=== PATIENT | female | born 1960 | race Caucasian/White ===

== ENCOUNTER 2016-07-27 18:46 | Emergency (ER) | payer MEDICAID ==
[~2016-07-27] VITALS: Ht 172.7 cm; Wt 60.0 kg
[~2016-07-27 18:46] MED LIST: CLON1TAB PO; LEVO-86 PO; METO50TA PO; REST30CA PO
[2016-07-27 18:53] VITALS: BP 120/80; PULSE 87; RESP 17; TEMP 98.2; O2SAT 98
[2016-10-02] MEDS ORDERED: AUGM875T PO (14:37)
[2016-10-02] MEDS ORDERED: AMLO10TA2 PO (14:39)
[2016-11-13] MEDS ORDERED: LEVO-86 PO (14:52)
[2016-11-21] MEDS ORDERED: LEVO-86 PO (13:52)
== END 2016-07-27 22:56 | disposition left against medical advice (07) ==
LOC: NED 22:56
DX: R10.9 Unspecified abdominal pain (principal); Z53.21 Procedure and treatment not carried out due to patient leaving prior to being seen by health care provider
CPT/HCPCS: 99281

== ENCOUNTER 2016-08-01 02:30 | Emergency (ER) | payer MEDICAID ==
[~2016-08-01] VITALS: Ht 154.9 cm; Wt 51.0 kg
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
[2016-08-01 02:59] VITALS: BP 134/92; PULSE 103; RESP 18; TEMP 97.6
[2016-08-01 03:16] VITALS: BP 134/92; PULSE 103; RESP 18; TEMP 97.6; O2SAT 97
[2016-08-01 03:37] LABS: CHLORIDE 110 MEQ/L (98-107); POTASSIUM 3.7 MEQ/L (3.5-5.1); SODIUM (NA) 148 MEQ/L (136-145)
[2016-08-01 03:41] LABS: ANION GAP 9 MEQ/L (5-15); BICARBONATE 28.7 MEQ/L (21.0-32.0); BLOOD UREA NITROGEN 8 MG/DL (7-18); MAGNESIUM 2.1 MG/DL (1.5-2.5)
[2016-08-01 03:43] LABS: ALT (GPT) 64 U/L (10-53); AST (GOT) 87 U/L (15-37)
[2016-08-01 03:44] LABS: GLOMERULAR FILTRATION RATE 74 ML/MIN (>89)
[2016-08-01 03:45] LABS: BASOPHIL # 0.1 TH/MM3 (0-0.2); BASOPHIL % 1.7 % (0.0-2.0); EOSINOPHIL # 0.2 TH/MM3 (0-0.4); EOSINOPHIL % 2.6 % (0.0-4.0); HEMATOCRIT 38.3 % (35.0-46.0); HEMO FLAGS DIFF FINAL; LYMPH % 38.3 % (9.0-44.0); LYMPHOCYTE # 2.6 TH/MM3 (1.0-4.8); MEAN CORPUSCULAR HGB CONC 33.4 % (32.0-36.0); MONO % 11.5 % (0.0-8.0); NEUT % 45.9 % (16.0-70.0); PLATELET COUNT 466 TH/MM3 (150-450); RED BLOOD COUNT 3.99 MIL/MM3 (4.00-5.30); RED CELL DISTRIBUTION WIDTH 13.1 % (11.6-17.2); TOTAL BILIRUBIN ADULT 0.1 MG/DL (0.2-1.0); WHITE BLOOD COUNT 6.7 TH/MM3 (4.0-11.0)
[2016-08-01 03:46] LABS: ALKALINE PHOSPHATASE 65 U/L (45-117); CREATINE KINASE 112 U/L (26-192)
[2016-08-01 03:49] LABS: BETA HCG QUANT LESS THAN 1 MIU/ML (0-5)
--- NOTE | 2016-08-01 03:52 | RADHPO ---
EXAM DATE/TIME: 08/01/2016 02:55 [facility] COMPARISON: CHEST PA & LAT, May 25, 2016, 16:59. INDICATIONS : Chest pain. MEDICAL HISTORY : Hypertension. SURGICAL HISTORY : None. ENCOUNTER: Initial ACUITY: 1 day PAIN SCORE: 5/10 LOCATION: Bilateral chest FINDINGS: PA and lateral views of the chest demonstrate the lungs to be symmetrically aerated without evidence of mass, infiltrate or effusion. The cardiomediastinal contours are unremarkable. Osseous structure s are intact. CONCLUSION: 1. No acute cardiopulmonary disease. Michael Rosa MD on August 01, 2016 at 3:50 Board Certified Radiologist. This report was verified electronically.
[2016-08-01 04:07] LABS: CKMB 1.8 NG/ML (0.5-3.6)
[2016-08-01] MEDS ORDERED: LEVONORGESTREL (EMERGENCY OC) 1.5 MG TAB ONE (05:07)
[2016-08-01] MEDS ORDERED: ONDANSETRON ODT 4 MG TAB ONE (05:08)
[2016-08-01] MEDS ORDERED: AZITHROMYCIN 250 MG TAB ONE (05:08)
[2016-08-01] MEDS ORDERED: cefTRIAXone 250 MG VIAL ONE (05:08)
[2016-08-01] MEDS ORDERED: LIDOCAINE HCL 1% PF 2 ML VIAL ONE (05:09)
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
[2016-08-01 07:19] VITALS: BP 132/67
--- NOTE | 2016-08-01 22:50 | EKG ---
Date Performed: 08/01/2016 Time Performed: 03:47:48 PTAGE: 56 years EKG: Sinus rhythm Poor R wave progression - probable normal variant Borderline ECG PREVIOUS TRACING : 11/10/2015 00.41 DOCTOR: Shyanne June Interpretating Date/Time 08/01/2016 22:47:02
[2016-10-02] MEDS ORDERED: AUGM875T PO (14:37)
[2016-10-02] MEDS ORDERED: AMLO10TA2 PO (14:39)
[2016-11-13] MEDS ORDERED: LEVO-86 PO (14:52)
[2016-11-21] MEDS ORDERED: LEVO-86 PO (13:52)
== END 2016-08-01 07:59 | disposition home or self-care (01) ==
LOC: PHED 02:30
DX: F10.129 Alcohol abuse with intoxication, unspecified (principal); I10 Essential (primary) hypertension; I48.91 Unspecified atrial fibrillation; I50.9 Heart failure, unspecified; F17.200 Nicotine dependence, unspecified, uncomplicated; F31.9 Bipolar disorder, unspecified; T76.21XA Adult sexual abuse, suspected, initial encounter; Y90.8 Blood alcohol level of 240 mg/100 ml or more
CPT/HCPCS: 70450; 71020; 80053; 80320; 82550; 82552; 83690; 83735; 84484; 84702; 85025; 93005; 99285; J0696

== ENCOUNTER 2016-09-28 16:07 | Emergency (ER) | payer MEDICAID ==
[2016-09-28 16:09] VITALS: BP 150/90; PULSE 86; RESP 20; TEMP 98; O2SAT 95
[2016-09-28] MEDS ORDERED: SODIUM CHLOR 0.9% 1000 ML INJ 1,000 ML IV SCH (16:21)
[2016-09-28] MEDS ORDERED: LIDOCAINE VISCOUS 2% SOLN 15 ML UDC PO ONE (16:30)
[2016-09-28] MEDS ORDERED: ALUMINUM/MAGNESIUM/SIMETH 30 ML CUP PO ONE (16:30)
[2016-09-28] MEDS ORDERED: RESP: ALBUTEROL 2.5 MG/IPRATROPIUM 0.5 MG NEB (SCH) INH ONE (16:30)
[2016-09-28] MEDS ORDERED: SODIUM CHLORIDE 0.9% FLUSH 10 ML FLUSH IVF PRN (16:30)
[2016-09-28] MEDS ORDERED: methylPREDNISolone SOD SUCC 125 MG/2 ML VIAL IVP ONE (16:30)
[2016-09-28] MEDS ORDERED: RESP: ALBUTEROL 2.5 MG/IPRATROPIUM 0.5 MG NEB (SCH) NEB ONE ×2 (16:45)
--- NOTE | 2016-09-28 16:46 | PD ---
HPI Chief Complaint: ENT Complaint Time Seen by Provider: 16:30 Travel History International Travel<30 days: No Contact w/Intl Traveler<30days: No Traveled to known affect area: No History of Present Illness HPI The patient was seen and examined in the presence of the nurse. This patient is brought in by paramedics. She is very challenging to evaluate. She is an alcoholic who admits to drinking today. She is argumentative and uncooperative. She is swearing and being belligerent. Symptoms moderately severe. No alleviating factors. Duration is 3 days. She complains of cough and congestion and sore throat and runny nose. She is a smoker and frequent binge drinker. Denies drug use. PFSH Past Medical History Arthritis: Yes Asthma: No Atrial Fibrillation: Yes Autoimmune Disease: Yes Blood Disorders: No Bipolar Disorder: Yes Anxiety: Yes Depression: Yes Heart Rhythm Problems: Yes (VALVULAR HEART DISEASE, A FIB PER PATIENT) Cancer: Yes (LYMPHOMA, LEUKEMIA) Cardiovascular Problems: Yes High Cholesterol: No Chemotherapy: No Chest Pain: Yes Congestive Heart Failure: Yes COPD: No Cerebrovascular Accident: Yes Diabetes: Yes Patient Takes Glucophage: No Diminished Hearing: No Endocrine: Yes (SAAD) Gastrointestinal Disorders: Yes GERD: No Glaucoma: No Genitourinary: Yes (PAIN WITH URINATION X3 YEARS STATES HAS "CLIPS FROM BACK SURGERY IN BLADDER) Headaches: Yes Hepatitis: No Hiatal Hernia: No Hypertension: Yes Immune Disorder: Yes (SAAD, RAYNAUD'S SYNDROME) Implanted Vascular Access Dvce: Yes Kidney Stones: No Musculoskeletal: Yes Neurologic: Yes Reproductive: Yes ("TILTED UTERUS") Respiratory: Yes Immunizations Current: No Myocardial Infarction: No Radiation Therapy: No Renal Failure: No Seizures: No Sleep Apnea: No Thyroid Disease: Yes Ulcer: Yes ("BLEEDING ULCERS" STOMACH) Menopausal: Yes : 5 Para: 3 Miscarriage: 0 : 2 Ovarian Cysts: Yes Tubal Ligation: Yes (1999) Past Surgical History Abdominal Surgery: No AICD: No Body Medical Devices: CLIPS IN BLADDER, BACK FROM SURGERY Cardiac Surgery: No Section: Yes Ear Surgery: No Endocrine Surgery: No Eye Surgery: No Genitourinary Surgery: No Gynecologic Surgery: Yes (3 C SECTIONS) Hysterectomy: Yes Neurologic Surgery: No Oral Surgery: No Pacemaker: No Thoracic Surgery: No Tonsillectomy: Yes Other Surgery: Yes (LOW BACK) Social History Alcohol Use: Yes (DAILY) Tobacco Use: Yes (1/2 PPD) Substance Use: Yes (marijuana) Allergies-Medications (Allergen,Severity, Reaction): Coded Allergies: Egg Allergy (Unverified Allergy, Severe, Nausea/Vomiting, 09/28/16) Flexeril (Verified Allergy, Severe, TRIPLE VISION, INCREASE HEART RATE, EARS RINGING, 09/28/16) Per [facility] in [place], [place] [phone]. Listed as an allergy in their profile but was unsure what the reaction/response was to the medication. Morphine (Verified Allergy, Severe, Itching, 09/28/16) "Morphine Derivitives": Per [facility] in [place], [place] [phone]. Listed as an allergy in their profile but was unsure what the reaction/response was to the medication. Vitamin B12 (Verified Allergy, Severe, TONGUE SWELLS, 09/28/16) Per [facility] in [place], [place] [phone]. Listed as an allergy in their profile but was unsure what the reaction/response was to the medication. Toradol (Verified Allergy, Intermediate, RASH, 09/28/16) Benadryl (Verified Allergy, Mild, 09/28/16) Per [facility] in [facility], [place] [phone]. Listed as an allergy in their profile but was unsure what the reaction/response was to the medication. Vitamin B6 (Verified Allergy, Unknown, 09/28/16) Per [facility] in [facility], [place] [phone]. Listed as an allergy in their profile but was unsure what the reaction/response was to the medication. Zithromax (Verified Allergy, Unknown, 09/28/16) Cipro (Verified Adverse Reaction, Unknown, states causes afib, 09/28/16) Uncoded Allergies: STEROIDS (Allergy, Severe, Atrial Fibrillation, 09/03/15) ANTIDEPRESSANTS (Adverse Reaction, Severe, INCREASE HEART RATE, TRIPLE VISION, EARS RINGING, 09/03/15) .PATIENT STATES "SAME REACTION WITH ALL" THAT SHE HAS TAKEN LACTOSE INTOLERANT (Adverse Reaction, Severe, 09/03/15) Reported Meds & Prescriptions Reported Meds & Active Scripts Active Doxycycline Hyclate 100 Mg Cap 100 Mg PO BID Synthroid (Levothyroxine Sodium) 137 Mcg Tab 137 Mcg PO DAILY Review of Systems General / Constitutional: No: Fever Eyes: No: Visual changes HENT: Positive: Rhinorrhea, Congestion, No: Headaches Cardiovascular: No: Chest Pain or Discomfort Respiratory: Positive: Cough, Shortness of Breath, Wheezing Gastrointestinal: No: Abdominal Pain Genitourinary: No: Dysuria Musculoskeletal: No: Pain Skin: No Rash Neurologic: No: Weakness Psychiatric: Positive: Substance Abuse, No: Depression Endocrine: No: Polydipsia Hematologic/Lymphatic: No: Easy Bruising Physical Exam Narrative GENERAL: Uncooperative well-developed patient with a combination of flulike and respiratory complaints SKIN: Focused skin assessment reveals no rash and nodules. Skin is Warm and dry. HEAD: Atraumatic. Normocephalic. EYES: Pupils equal and round. No scleral icterus. No injection or drainage. ENT: No nasal bleeding or discharge. Mucous membranes pink and moist. NECK: Trachea midline. No JVD. CARDIOVASCULAR: Regular rate and rhythm. No murmur appreciated. RESPIRATORY: No accessory muscle use. Very diffusely diminished breath sounds. Some rhonchi and minor expiratory wheeze. Breath sounds equal bilaterally. GASTROINTESTINAL: Abdomen soft, non-tender, nondistended. Hepatic and splenic margins not palpable. MUSCULOSKELETAL: No obvious deformities. No clubbing. No cyanosis. No edema. NEUROLOGICAL: Awake and alert. No obvious cranial nerve deficits. Motor grossly within normal limits but difficult to accurately gazes she doesn't really cooperate with exam.. Normal speech. PSYCHIATRIC: Belligerent and uncooperative mood and affect; insight and judgment poor. Data Data Last Documented VS Vital Signs Date Time Temp Pulse Resp B/P Pulse Ox O2 Delivery O2 Flow Rate FiO2 09/28/16 18:01 80 16 119/81 100 Room Air 09/28/16 16:09 98.0 Orders Complete Blood Count With Diff (09/28/16 16:21) Comprehensive Metabolic Panel (09/28/16 16:21) Influenzae A/B Antigen (09/28/16 16:21) Iv Access Insert/Monitor (09/28/16 16:21) Ecg Monitoring (09/28/16 16:21) Oximetry (09/28/16 16:21) Oxygen Administration (09/28/16 16:21) Sodium Chloride 0.9% Flush (Ns Flush) (09/28/16 16:30) Methylprednisolone So Succ Inj (Solumedr (09/28/16 16:30) Albuterol-Ipratropium Neb (Duoneb Neb) (09/28/16 16:30) Alcohol (Ethanol) (09/28/16 16:21) Sodium Chlor 0.9% 1000 Ml Inj (Ns 1000 M (09/28/16 16:21) Al-Mag Hy-Si 40-40-4 Mg/Ml Liq (Mag-Al P (09/28/16 16:30) Lidocaine 2% Viscous (Xylocaine 2% Visco (09/28/16 16:30) Chest, Single Ap (09/28/16 ) Albuterol-Ipratropium Neb (Duoneb Neb) (09/28/16 16:45) Albuterol-Ipratropium Neb (Duoneb Neb) (09/28/16 16:45) Labs Laboratory Tests Test 09/28/16 09/28/16 16:50 17:08 White Blood Count 2.8 TH/MM3 Red Blood Count 4.34 MIL/MM3 Hemoglobin 14.3 GM/DL Hematocrit 42.0 % Mean Corpuscular Volume 96.9 FL Mean Corpuscular Hemoglobin 33.0 PG Mean Corpuscular Hemoglobin 34.1 % Concent Red Cell Distribution Width 13.6 % Platelet Count 157 TH/MM3 Mean Platelet Volume 6.8 FL Neutrophils (%) (Auto) 33.1 % Lymphocytes (%) (Auto) 46.5 % Monocytes (%) (Auto) 11.4 % Eosinophils (%) (Auto) 5.9 % Basophils (%) (Auto) 3.1 % Neutrophils # (Auto) 0.9 TH/MM3 Lymphocytes # (Auto) 1.3 TH/MM3 Monocytes # (Auto) 0.3 TH/MM3 Eosinophils # (Auto) 0.2 TH/MM3 Basophils # (Auto) 0.1 TH/MM3 CBC Comment AUTO DIFF Differential Total Cells 100 Counted Neutrophils % (Manual) 29 % Lymphocytes % 55 % Monocytes % 10 % Eosinophils % 5 % Basophils % 1 % Neutrophils # (Manual) 0.8 TH/MM3 Differential Comment FINAL DIFF MANUAL Atypical Lymphocytes % Platelet Estimate LOW Platelet Morphology Comment NORMAL Red Cell Morphology Comment NORMAL Sodium Level 148 MEQ/L Potassium Level 4.3 MEQ/L Chloride Level 111 MEQ/L Carbon Dioxide Level 26.5 MEQ/L Anion Gap 11 MEQ/L Blood Urea Nitrogen 10 MG/DL Creatinine 0.73 MG/DL Estimat Glomerular Filtration 82 ML/MIN Rate Random Glucose 106 MG/DL Calcium Level 8.4 MG/DL Total Bilirubin 0.3 MG/DL Aspartate Amino Transf 106 U/L (AST/SGOT) Alanine Aminotransferase 61 U/L (ALT/SGPT) Alkaline Phosphatase 68 U/L Total Protein 7.9 GM/DL Albumin 4.0 GM/DL Ethyl Alcohol Level 391 MG/DL [facility] Medical Decision Making Medical Screen Exam Complete: Yes Emergency Medical Condition: Yes Medical Record Reviewed: Yes Differential Diagnosis Pneumonia, pneumothorax, COPD, alcohol intoxication Narrative Course I have reviewed the patient's electronic medical record. Patient has been here multiple times for alcohol intoxication IV placed I gave her series of 3 nebulizer treatments Patient has borderline hypoxia on room air and is dyspneic I gave her IV Solu-Medrol This was listed on her allergy list but she is not allergic to Solu-Medrol. She also mentioned being allergic to albuterol because it causes her heart to beat fast. I don't think she is allergic to either these CBC shows some leukopenia 2.8 Metabolic profile shows some mild hypernatremia LFTs are reviewed Alcohol level is elevated at 391 I reviewed her chest x-ray is normal On recheck she is clinically improved. She is breathing better. Her room air saturation is 97% Given some sober time and we will try to find a ride home from a responsible adult I refilled her Synthroid and wrote her some doxycycline 1 She has a primary care follow-up in 4 days. I advised her to track her blood pressure and avoid alcohol binging and cigarette smoking Patient refuses inhaler prescription and says she will not fill them or use them Diagnosis Primary Impression: Bronchitis Additional Impression: Alcohol intoxication Qualified Code: F10.120 - Alcohol intoxication, uncomplicated Additional Instructions: The patient was advised to follow up with their physician and return if they worsen. Check and record blood pressure daily Avoid alcohol binging Avoid cigarettes Med/Other Pt SpecificInfo: Prescription(s) given Scripts Doxycycline Hyclate 100 Mg [id number] Mg PO BID #14 CAP Ref 0 Prov:Yogi Rodriguez MD 09/28/16 Levothyroxine (Synthroid)137 Mcg [id number] Mcg PO DAILY #30 TAB Ref 0 Prov:Yogi Rodriguez MD 09/28/16 Disposition: 01 DISCHARGE HOME Condition: Stable Yogi Rodriguez MD Sep 28, 2016 16:46
--- NOTE | 2016-09-28 16:51 | RADHPO ---
EXAM DATE/TIME: 09/28/2016 16:34 [facility] COMPARISON: CHEST SINGLE AP, November 10, 2015, 0:58. INDICATIONS : Shortness of breath. MEDICAL HISTORY : Cardiovascular disease. Cerebrovascular disease. Diabetes mellitus type II. Hypertension SURGICAL HISTORY : None. ENCOUNTER: Initial ACUITY: 1 day PAIN SCORE: 5/10 LOCATION: Bilateral chest FINDINGS: A single view of the chest demonstrates the lungs to be symmetrically aerated without evidence of mas s, infiltrate or effusion. The cardiomediastinal contours are unremarkable. Osseous structures are intact. CONCLUSION: No acute disease. Kadeem Arambula MD on September 28, 2016 at 16:50 Board Certified Radiologist. This report was verified electronically.
[2016-09-28 16:55] VITALS: O2SAT 99
[2016-09-28 16:57] LABS: AUTOMATED NEUTROPHIL # 0.9 TH/MM3 (1.8-7.7); BASOPHIL # 0.1 TH/MM3 (0-0.2); BASOPHIL % 3.1 % (0.0-2.0); EOSINOPHIL # 0.2 TH/MM3 (0-0.4); EOSINOPHIL % 5.9 % (0.0-4.0); LYMPH % 46.5 % (9.0-44.0); LYMPHOCYTE # 1.3 TH/MM3 (1.0-4.8); MEAN CELL VOLUME 96.9 FL (80.0-100.0); MEAN CORPUSCULAR HGB CONC 34.1 % (32.0-36.0); MONO % 11.4 % (0.0-8.0); NEUT % 33.1 % (16.0-70.0); PLATELET COUNT 157 TH/MM3 (150-450); RED BLOOD COUNT 4.34 MIL/MM3 (4.00-5.30); RED CELL DISTRIBUTION WIDTH 13.6 % (11.6-17.2); WHITE BLOOD COUNT 2.8 TH/MM3 (4.0-11.0)
[2016-09-28 17:05] VITALS: BP 140/94; PULSE 89; RESP 16; O2SAT 96
[2016-09-28 17:05] LABS: HEMO FLAGS AUTO DIFF
[2016-09-28 17:39] LABS: CHLORIDE 111 MEQ/L (98-107); SODIUM (NA) 148 MEQ/L (136-145)
[2016-09-28 17:40] LABS: BASOPHILS 1 % (0-2); EOSINOPHILS 5 % (0-4); NEUTROPHIL # MANUAL DIFF 0.8 TH/MM3 (1.8-7.7); POLYS (SEG NEUTROPHILS) 29 % (16-70); WBC DIFF SAMPLE 100
[2016-09-28 17:41] LABS: PLATELET ESTIMATE SMEAR LOW (NORMAL); PLATELET MORPHOLOGY NORMAL (NORMAL); SCAN/DIFF FINAL DIFF MANUAL
[2016-09-28 17:43] LABS: ANION GAP 11 MEQ/L (5-15); BICARBONATE 26.5 MEQ/L (21.0-32.0); BLOOD UREA NITROGEN 10 MG/DL (7-18)
[2016-09-28 17:46] LABS: ALT (GPT) 61 U/L (10-53); AST (GOT) 106 U/L (15-37); GLOMERULAR FILTRATION RATE 82 ML/MIN (>89)
[2016-09-28 17:47] LABS: TOTAL BILIRUBIN ADULT 0.3 MG/DL (0.2-1.0)
[2016-09-28 17:48] LABS: ALKALINE PHOSPHATASE 68 U/L (45-117)
[2016-09-28 18:01] VITALS: BP 119/81; PULSE 80; RESP 16; O2SAT 100
[2016-09-28 18:02] LABS: POTASSIUM 4.3 MEQ/L (3.5-5.1)
[2016-09-28] MEDS ORDERED: LEVO-86 PO (18:12)
[2016-09-28] MEDS ORDERED: DOXY100C PO (18:12)
[2016-10-02] MEDS ORDERED: AUGM875T PO (14:37)
[2016-10-02] MEDS ORDERED: AMLO10TA2 PO (14:39)
[2016-11-13] MEDS ORDERED: LEVO-86 PO (14:52)
[2016-11-21] MEDS ORDERED: LEVO-86 PO (13:52)
== END 2016-09-28 18:44 | disposition home or self-care (01) ==
LOC: PHEFT 16:07 → PHED 18:44
DX: J40 Bronchitis, not specified as acute or chronic (principal); F10.129 Alcohol abuse with intoxication, unspecified; F31.9 Bipolar disorder, unspecified; I10 Essential (primary) hypertension; E11.9 Type 2 diabetes mellitus without complications; I50.9 Heart failure, unspecified; I48.91 Unspecified atrial fibrillation; I73.00 Raynaud's syndrome without gangrene; F17.210 Nicotine dependence, cigarettes, uncomplicated; Y90.8 Blood alcohol level of 240 mg/100 ml or more
CPT/HCPCS: 71010; 80053; 80307; 85007; 85027; 87804; 94640; 94664; 96361; 96374; 99284; J2930; J7030

== ENCOUNTER 2016-10-26 16:04 | Emergency (ER) | payer MEDICAID ==
[~2016-10-26 16:04] MED LIST changes: +AMLO10TA2 PO; +AUGM875T PO; -CLON1TAB PO; +DOXY100C PO; -METO50TA PO; -REST30CA PO
[2016-10-26 16:28] VITALS: BP 147/88; PULSE 102; RESP 18; TEMP 97.9; O2SAT 94
[2016-10-26] MEDS ORDERED: ROBA750T PO (16:28)
[2016-10-26] MEDS ORDERED: METO50TA PO (16:28)
[2016-10-26] MEDS ORDERED: HYDR-3534 PO (16:28)
[2016-10-26] MEDS ORDERED: CEFD300C PO (16:28)
--- NOTE | 2016-10-26 17:09 | RADHPO ---
EXAM DATE/TIME: 10/26/2016 16:40 [place] COMPARISON: CHEST PA & LAT, August 01, 2016, 2:55. INDICATIONS : Left chest pain. MEDICAL HISTORY : Cerebrovascular disease. Cardiovascular disease. Diabetes mellitus type II. Hypertension SURGICAL HISTORY : None. ENCOUNTER: Initial ACUITY: 1 day PAIN SCORE: 10/10 LOCATION: Left chest FINDINGS: PA and lateral views of the chest demonstrate the lungs to be symmetrically aerated without evidence of mass, infiltrate or effusion. The cardiomediastinal contours are unremarkable. Osseous structure s are intact. CONCLUSION: No acute disease. Benitez Josue MD FACR on October 26, 2016 at 17:07 Board Certified Radiologist. This report was verified electronically.
[2016-10-26 17:37] VITALS: BP 154/102; PULSE 108; RESP 22; O2SAT 97
[2016-10-26 17:40] VITALS: BP 156/102; PULSE 108; RESP 20; TEMP 97.8; O2SAT 97
[2016-10-26] MEDS ORDERED: ACETAMINOPHEN/HYDROcodone 325 MG/5 MG TAB PO ONE (17:45)
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
[2016-10-26 18:13] LABS: AUTOMATED NEUTROPHIL # 6.1 TH/MM3 (1.8-7.7); BASOPHIL # 0.1 TH/MM3 (0-0.2); BASOPHIL % 1.5 % (0.0-2.0); EOSINOPHIL % 0.5 % (0.0-4.0); HEMATOCRIT 36.4 % (35.0-46.0); LYMPH % 8.6 % (9.0-44.0); LYMPHOCYTE # 0.7 TH/MM3 (1.0-4.8); MEAN CORPUSCULAR HEMOGLOBIN 33.6 PG (27.0-34.0); MEAN CORPUSCULAR HGB CONC 34.3 % (32.0-36.0); NEUT % 78.4 % (16.0-70.0); PLATELET COUNT 293 TH/MM3 (150-450); RED BLOOD COUNT 3.71 MIL/MM3 (4.00-5.30); RED CELL DISTRIBUTION WIDTH 12.7 % (11.6-17.2); WHITE BLOOD COUNT 7.8 TH/MM3 (4.0-11.0)
[2016-10-26 18:17] LABS: CHLORIDE 98 MEQ/L (98-107); POTASSIUM 3.7 MEQ/L (3.5-5.1); SODIUM (NA) 133 MEQ/L (136-145)
[2016-10-26 18:19] LABS: HEMO FLAGS DIFF FINAL
[2016-10-26 18:20] LABS: ANION GAP 10 MEQ/L (5-15); BICARBONATE 25.5 MEQ/L (21.0-32.0); BLOOD UREA NITROGEN 10 MG/DL (7-18)
[2016-10-26 18:23] LABS: GLOMERULAR FILTRATION RATE 82 ML/MIN (>89)
[2016-10-26 18:26] LABS: INTERNATIONAL NORMALIZED RATIO 0.9 RATIO; PROTHROMBIN TIME - PATIENT 10.3 SEC (9.8-11.6)
[2016-10-26 18:28] VITALS: BP 152/89; PULSE 98; RESP 18; O2SAT 96
[2016-10-26] MEDS ORDERED: TRAM50TA PO (18:54)
[2016-11-13] MEDS ORDERED: LEVO-86 PO (14:52)
[2016-11-21] MEDS ORDERED: LEVO-86 PO (13:52)
== END 2016-10-26 19:29 | disposition home or self-care (01) ==
LOC: PHEFT 16:04
DX: R07.89 Other chest pain (principal); I10 Essential (primary) hypertension; E11.9 Type 2 diabetes mellitus without complications; E07.9 Disorder of thyroid, unspecified; F17.200 Nicotine dependence, unspecified, uncomplicated; Z87.39 Personal history of other diseases of the musculoskeletal system and connective tissue; Z86.79 Personal history of other diseases of the circulatory system; Z86.2 Personal history of diseases of the blood and blood-forming organs and certain disorders involving the immune mechanism; Z86.59 Personal history of other mental and behavioral disorders; Z85.72 Personal history of non-Hodgkin lymphomas; Z85.6 Personal history of leukemia; Z87.19 Personal history of other diseases of the digestive system; Z87.448 Personal history of other diseases of urinary system
CPT/HCPCS: 71020; 80048; 80307; 83690; 85025; 85379; 85610; 85730; 99284

== ENCOUNTER 2017-06-08 17:41 | Emergency (ER) | payer MEDICAID ==
[~2017-06-08] VITALS: Ht 154.9 cm; Wt 56.0 kg
[~2017-06-08 17:41] MED LIST changes: -AMLO10TA2 PO; -AUGM875T PO; +CEFD300C PO; -DOXY100C PO; +HYDR-3534 PO; +METO50TA PO; +ROBA750T PO; +TRAM50TA PO
[2017-06-08 17:47] VITALS: BP 163/96; PULSE 89; RESP 16; TEMP 98.2; O2SAT 95
[2017-06-08] MEDS ORDERED: DOXY100C PO (18:53)
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
[2017-06-08] MEDS ORDERED: KETOROLAC TROMETHAMINE 60 MG/2 ML (IM) VIAL IM ONE (19:15)
== END 2017-06-08 19:15 | disposition home or self-care (01) ==
LOC: PHEFT 17:41
DX: J40 Bronchitis, not specified as acute or chronic (principal); S29.012A Strain of muscle and tendon of back wall of thorax, initial encounter; Y04.2XXA Assault by strike against or bumped into by another person, initial encounter; I48.91 Unspecified atrial fibrillation; F31.9 Bipolar disorder, unspecified; I11.0 Hypertensive heart disease with heart failure; I50.9 Heart failure, unspecified; E11.9 Type 2 diabetes mellitus without complications; E06.3 Autoimmune thyroiditis
CPT/HCPCS: 99283

== ENCOUNTER 2017-07-31 22:43 | Emergency (ER) | payer MEDICAID ==
[~2017-07-31 22:43] MED LIST changes: +DOXY100C PO
[2017-07-31 22:51] VITALS: BP 170/105; PULSE 120; RESP 20; TEMP 97.2; O2SAT 97
== END 2017-07-31 22:55 | disposition left against medical advice (07) ==
LOC: PHED 22:43
DX: R09.89 Other specified symptoms and signs involving the circulatory and respiratory systems (principal)
CPT/HCPCS: 99281